=== PATIENT | male | born 1980 | race Caucasian/White ===

== ENCOUNTER 2017-10-01 18:29 | Emergency (ER) | payer OTHER ==
[~2017-10-01] VITALS: Ht 182.9 cm; Wt 105.7 kg
[~2017-10-01 18:29] MED LIST: Benadryl 50 mg50 MG PO; Epipen0.3 MG/0.3 IM; GABA300 PO
== END 2017-10-01 19:46 | disposition home or self-care (01) ==
LOC: ER 18:29
DX: S61.012A Laceration without foreign body of left thumb without damage to nail, initial encounter (principal); Z91.030 Bee allergy status; Z88.1 Allergy status to other antibiotic agents; Z79.899 Other long term (current) drug therapy; F17.200 Nicotine dependence, unspecified, uncomplicated; W45.8XXA Other foreign body or object entering through skin, initial encounter
CPT/HCPCS: 12001; 73130; 90471; 90714; 99283

== ENCOUNTER → 2019-02-24 | Outpatient (CLI) | payer OTHER ==
[2019-02-24 18:33] LABS: Bilirubin, Urine Neg (Neg); Blood, Urine Neg (Neg); Glucose Qualitative, Urine Neg (Neg); Ketones, Urine Neg (Neg); Leukocyte Esterase, Urine Neg (Neg); Nitrite, Urine Neg (Neg); Protein, Urine Neg (Neg); Urobilinogen, Urine NORM (Normal); pH, Urine 6.5 (5.0-8.0)
[2019-02-24 19:03] LABS: Appearance, Urine Clear (Clear); Color, Urine Yellow (P-Yellow)
== END | disposition home or self-care (01) ==
LOC: LAB SRC 15:21 → LAB SHORT 15:21
PROVIDERS: Nurse Practitioner Family
DX: R39.11 Hesitancy of micturition (principal)
CPT/HCPCS: 81003

== ENCOUNTER 2020-10-09 01:33 | Emergency (ER) | payer OTHER ==
[~2020-10-09] VITALS: Ht 182.9 cm; Wt 77.1 kg
[2020-10-09] MEDS ORDERED: IBU600 MG PO (02:22)
[2020-10-09] MEDS ORDERED: COMPAZINE10 MG PO (02:22)
== END 2020-10-09 02:59 | disposition home or self-care (01) ==
LOC: ER 01:33
DX: G43.909 Migraine, unspecified, not intractable, without status migrainosus (principal); F17.200 Nicotine dependence, unspecified, uncomplicated; Z91.030 Bee allergy status; Z88.8 Allergy status to other drugs, medicaments and biological substances
CPT/HCPCS: 70450; 96372-59; 96374; 99284-25; J1630; J1885; J7030